=== PATIENT | male | born 1950 ===

== ENCOUNTER 2020-02-10 13:34 | Day surgery (SDC) | payer MEDICARE, BC ==
[~2020-02-10] VITALS: Ht 172.7 cm; Wt 107.0 kg
[~2020-02-10 13:34] MED LIST: ASPI81CH PO; CRANBERRY EXTRACT PO; FLAX PO; MEDICAL MARIJUANA PO; METF500 PO; SIMV40 PO; [UNRECOGNIZED DRUG - OTHER]
--- NOTE | 2020-02-10 15:16 | NUR ---
02/10/20 1516 Holly Robert JUST CHECKING IN ON PT.. EARLIER, PT. WAS INFORMED THAT WAS RUNNING BEHIND. PT. VERBALIZED THAT HE HAD FALLEN ASLEEP ALITTLE BIT EARLIER. PT. WITH CALL LIGHT WITHIN REACH.
--- NOTE | 2020-02-10 16:51 | NUR ---
02/10/20 1656 Holly Robert INSTRUCTIONS GIVEN TO PT. & HIS BROTHER WITH UNDERSTANDING.
== END 2020-02-10 17:05 | disposition home or self-care (01) ==
LOC: ORSCSDS 13:34
PROVIDERS: Internal Medicine Gastroenterology
PROC: 0DBM8ZX Excision of Descending Colon, Via Natural or Artificial Opening Endoscopic, Diagnostic (ICD-10-PCS; principal; 2020-02-10 15:15)
DX: K62.5 Hemorrhage of anus and rectum (principal); Z86.010 Personal history of colon polyps; D12.4 Benign neoplasm of descending colon; K57.30 Diverticulosis of large intestine without perforation or abscess without bleeding; K64.8 Other hemorrhoids; Z80.0 Family history of malignant neoplasm of digestive organs; Z79.899 Other long term (current) drug therapy; E66.9 Obesity, unspecified; Z68.36 Body mass index [BMI] 36.0-36.9, adult; Z87.891 Personal history of nicotine dependence; Z79.82 Long term (current) use of aspirin
CPT/HCPCS: 82947; 88305; J2704; J7120